=== PATIENT | female | born 1945 | race Caucasian/White ===

== ENCOUNTER 2021-05-31 18:33 | Emergency (ER) | payer MEDICARE, OTHER ==
[2021-05-31] MEDS ORDERED: Lactated Ringers 1,000 ML IV ONE (20:15)
--- NOTE | 2021-06-01 06:53 | CR ---
Chest: Portable view of the chest was obtained. Comparison: Prior chest x-ray of 02/05/12. Heart size and mediastinum are within normal limits for portable technique. Slight density is noted within the left lung base. Lungs otherwise are clear. Bony structures show nothing acute. Impression: 1. Slight density within the left lung base which could represent an area of atelectasis or small area of pneumonia. 2. Nothing acute is otherwise seen. Diagnostic code #3
--- NOTE | 2021-06-05 12:10 | EDM.PDOC ---
ED HPI GENERAL MEDICAL PROBLEM - General Chief Complaint: General Stated Complaint: COVID +/WORSENING SYMPTOMS Time Seen by Provider: 05/31/21 20:00 - History of Present Illness INITIAL COMMENTS - FREE TEXT/NARRATIVE: Patient reports symptom onset 1 week ago Endorses fatigue, cough, anorexia, altered taste and smell States her "bones hurt" Endorses dyspnea due to cough No vomiting or diarrhea Feels like she is getting dehydrated Tested positive for COVID-19 yesterday - Related Data Allergies Allergy/AdvReac Type Severity Reaction Status Date / Time atorvastatin calcium Allergy Cannot Verified 06/01/21 13:42 [From Lipitor] Remember Home Meds: Home Meds Acetaminophen/HYDROcodone [[place] 325-5 MG] 1 - 2 tab PO Q6H PRN #20 tab 04/29/14 [Rx] Antibiotic? 04/29/14 [History] Hydrochlorothiazide 12.5 mg PO DAILY 04/29/14 [History] Lisinopril. 04/29/14 [History] Ondansetron [Zofran ODT] 4 mg PO Q6H PRN #10 tab.dis 04/29/14 [Rx] Rosuvastatin Calcium [Crestor] 04/29/14 [History] Saxagliptin HCl/Metformin HCl [Kombiglyze XR 2.5-1,000 MG] 04/29/14 [History] Sertraline HCl 100 mg PO DAILY 04/29/14 [History] Tamsulosin HCl [Flomax] 0.4 mg PO QPM #10 cap.er.24h 04/29/14 [Rx] lisinopriL [Lisinopril] 5 mg PO DAILY 05/31/21 [History] dexAMETHasone [Dexamethasone] 6 mg PO DAILY #14 tablet 06/01/21 [Rx] Past Medical History Cardiovascular History: Reports: High Cholesterol, Hypertension - Infectious Disease History Infectious Disease History: Reports: Novel Coronavirus Social & Family History - Tobacco Use Tobacco Use Status *Q: Unknown Ever Used Tobacco ED ROS GENERAL - Review of Systems Review Of Systems: See Below Free Text/Narrative/Comment: Constitutional - fatigue, anorexia, anosmia, dysgeusia Eyes - no eye pain; no visual disturbance ENT - no rhinorrhea; no congestion; no epistaxis Cardiovascular - no chest pain Respiratory - shortness of breath; cough Gastrointestinal - no abdominal pain; no nausea; no vomiting; no diarrhea Genitourinary - no dysuria Musculoskeletal - myalgia; no extremity injury Neurological - no speech disturbance; no weakness ED EXAM, GENERAL - Physical Exam Exam: See Below Free Text/Narrative:: Constitutional - awake; alert; mild, general distress Head - no facial swelling or weakness Eyes - extra ocular motion intact; conjunctiva normal; pupils equal and reactive to light ENT - no nasal deformity; no epistaxis; normal phonation; mucus membranes moist; Neck - no swelling Respiratory - normal respiratory effort; no crackles or wheezing; no stridor Cardiovascular - regular rhythm; normal rate; S1; S2; grade 1/6 systolic murmur GI/Abdomen - normal bowel sounds; soft; no tenderness; no rebound; no guarding; no mass Musculoskeletal - grossly normal strength and motion; no swelling or deformity Skin - warm; dry Neurologic - normal speech; no weakness Psychiatric - normal mood and affect; memory and attention normal Course - Vital Signs Text/Narrative:: . Considered etiologies included: viral syndrome, COVID-19, dyspnea, pneumonia Symptoms and examination were discussed Investigations were initiated Empiric treatment was provided with IV fluid infusion Consideration for monoclonal antibody therapy was discussed Patient subsequently refused, stated she had to get home as her is also sick There was no hypoxia during ED course Patient was felt to be stable for outpatient follow-up Return precautions were provided Last Recorded V/S: Last Vital Signs Temp 36.9 C 05/31/21 21:59 Pulse 88 05/31/21 21:59 Resp 16 05/31/21 21:59 BP 124/75 05/31/21 21:59 Pulse Ox 90 L 05/31/21 21:59 - Orders/Labs/Meds Labs: Laboratory Tests 05/31/21 05/31/21 Range/Units 20:25 20:25 WBC 3.27 L (3.98-10.04) K/mm3 RBC 4.19 (3.98-5.22) M/mm3 Hgb 11.9 D (11.2-15.7) gm/dl Hct 37.1 (34.1-44.9) % MCV 88.5 (79.4-94.8) fl MCH 28.4 (25.6-32.2) pg MCHC 32.1 L (32.2-35.5) g/dl RDW Std Deviation 42.9 (36.4-46.3) fL Plt Count 141 L D (182-369) K/mm3 MPV 11.0 (9.4-12.3) fl Neut % (Auto) 71.6 H (34.0-71.1) % Lymph % (Auto) 18.0 L (19.3-51.7) % [place] % (Auto) 10.1 (4.7-12.5) % Eos % (Auto) 0.3 L (0.7-5.8) Baso % (Auto) 0.0 L (0.1-1.2) % Neut # (Auto) 2.34 (1.56-6.13) K/mm3 Lymph # (Auto) 0.59 L (1.18-3.74) K/mm3 [place] # (Auto) 0.33 (0.24-0.36) K/mm3 Eos # (Auto) 0.01 L (0.04-0.36) K/mm3 Baso # (Auto) 0.00 L (0.01-0.08) K/mm3 Sodium 133 L (136-145) mEq/L Potassium 4.3 (3.5-5.1) mEq/L Chloride 97 L (98-107) mEq/L Carbon Dioxide 27 (21-32) mEq/L Anion Gap 13.3 (5-15) BUN 14 (7-18) mg/dL Creatinine 0.9 (0.55-1.02) mg/dL Est Cr Clr Drug Dosing TNP Estimated GFR (MDRD) > 60 (>60) mL/min BUN/Creatinine Ratio 15.6 (14-18) Glucose 240 H (70-99) mg/dL Calcium 8.3 L (8.5-10.1) mg/dL Total Bilirubin 0.3 (0.2-1.0) mg/dL AST 20 (15-37) U/L ALT 17 (14-59) U/L Alkaline Phosphatase 74 (46-116) U/L Total Protein 7.0 (6.4-8.2) g/dl Albumin 3.2 L (3.4-5.0) g/dl Globulin 3.8 gm/dL Albumin/Globulin Ratio 0.8 L (1-2) Meds: Medications Discontinued Medications Generic Name Dose Route Start Last Admin Trade Name Freq PRN Reason Stop Dose Admin Lactated Ringer's 1,000 mls @ 999 mls/hr 05/31/21 20:15 05/31/21 20:28 Ringers, Lactated IV 05/31/21 21:15 999 mls/hr .BOLUS ONE Administration - Radiology Interpretation Free Text/Narrative:: XR chest, AP portable, interpreted by curriculum writer: [email or web address] Departure - Departure Time of Disposition: 22:00 Disposition: Home, Self-Care 01 Clinical Impression: COVID-19 virus infection - Discharge Information Referrals: Vonda Choudhary MD [Primary Care Provider] - Forms: ED Department Discharge Additional Instructions: (written instructions provided due to EHR malfunction) Sepsis Event Note (ED) - Evaluation Sepsis Screening Result: No Definite Risk
== END 2021-05-31 21:59 | disposition home or self-care (01) ==
LOC: JD.ED 18:33
DX: U07.1 COVID-19 (principal); E78.00 Pure hypercholesterolemia, unspecified; I10 Essential (primary) hypertension; Z86.16 Personal history of COVID-19; Z88.8 Allergy status to other drugs, medicaments and biological substances
CPT/HCPCS: 36415; 71045; 80053; 85025; 99283; J7120

== ENCOUNTER 2021-06-01 13:18 | Emergency (ER) | payer MEDICARE, OTHER ==
[2021-06-01] MEDS ORDERED: Dexamethasone 4 MG Tab PO ONE (14:48)
--- NOTE | 2021-06-01 15:49 | CR ---
Chest: Portable supine view of the chest was obtained. Comparison: Prior chest x-ray of 05/31/21. Possible increased density is seen located peripherally within the right upper lung which is an interval change from prior exam. Slight increased density within the left base is seen which appears stable. Minimal increased density is noted within the left upper lung which is an interval change from prior study. Heart size and mediastinum are within normal limits for supine technique. Slight scoliosis is noted within the spine. Impression: 1. Slight worsening of the chest as described above. Findings most likely represent mild worsening Covid pneumonia. Diagnostic code #3
--- NOTE | 2021-06-01 16:08 | EDM.PDOC ---
ED HPI GENERAL MEDICAL PROBLEM - General Chief Complaint: Respiratory Problem Stated Complaint: COVID +/LOW O2 Time Seen by Provider: 06/01/21 14:22 Source of Information: Reports: Patient History Limitations: Reports: No Limitations - History of Present Illness INITIAL COMMENTS - FREE TEXT/NARRATIVE: 75-year-old female presents the emergency department today with complaints of increasing shortness of breath due to Covid. The patient was diagnosed with Covid 2 days ago, 05/30/2021. She was seen in the emergency department last evening and evaluated and discharged home. She states she has had pulse oximetry monitored from [facility] and her O2 saturations have been dropping into the 80s on room air. They did phone her and tell her they recommend she be reevaluated in the emergency department today. Patient presents and is requesting home O2 and steroid treatment. She denies history of smoking. She states she is a diabetic and she is insulin-dependent. Her primary care provider is Dr. Choudhary. - Related Data Allergies Allergy/AdvReac Type Severity Reaction Status Date / Time atorvastatin calcium Allergy Cannot Verified 06/01/21 13:42 [From Lipitor] Remember Home Meds: Home Meds Acetaminophen/HYDROcodone [[place] 325-5 MG] 1 - 2 tab PO Q6H PRN #20 tab 04/29/14 [Rx] Antibiotic? 04/29/14 [History] Hydrochlorothiazide 12.5 mg PO DAILY 04/29/14 [History] Lisinopril. 04/29/14 [History] Ondansetron [Zofran ODT] 4 mg PO Q6H PRN #10 tab.dis 04/29/14 [Rx] Rosuvastatin Calcium [Crestor] 04/29/14 [History] Saxagliptin HCl/Metformin HCl [Kombiglyze XR 2.5-1,000 MG] 04/29/14 [History] Sertraline HCl 100 mg PO DAILY 04/29/14 [History] Tamsulosin HCl [Flomax] 0.4 mg PO QPM #10 cap.er.24h 04/29/14 [Rx] lisinopriL [Lisinopril] 5 mg PO DAILY 05/31/21 [History] dexAMETHasone [Dexamethasone] 6 mg PO DAILY #14 tablet 06/01/21 [Rx] Past Medical History Cardiovascular History: Reports: High Cholesterol, Hypertension - Infectious Disease History Infectious Disease History: Reports: Novel Coronavirus Social & Family History - Tobacco Use Tobacco Use Status *Q: Never Tobacco User ED ROS GENERAL - Review of Systems Review Of Systems: Comprehensive ROS is negative, except as noted in HPI. ED EXAM, GENERAL - Physical Exam Exam: See Below Exam Limited By: No Limitations General Appearance: Alert, WD/WN, Mild Distress Ears: Normal External Exam, Hearing Grossly Normal Nose: Normal Inspection Throat/Mouth: Normal Inspection, Normal Lips, Normal Voice, No Airway Compromise Head: Atraumatic Neck: Normal Inspection, Supple Respiratory/Chest: No Accessory Muscle Use, Chest Non-Tender, Decreased Breath Sounds, Crackles (Posteriorly). No: Lungs Clear, Normal Breath Sounds Cardiovascular: Normal Peripheral Pulses, Regular Rate, Rhythm, No Edema, No Murmur Peripheral Pulses: 2+: Radial (L), Radial (R) GI/Abdominal: Normal Bowel Sounds, Soft, Non-Tender, No Distention (Female) Exam: Deferred Rectal (Female) Exam: Deferred Back Exam: Normal Inspection Extremities: Normal Inspection Neurological: Alert, Oriented, Normal Cognition Psychiatric: Normal Affect, Normal Mood Skin Exam: Warm, Dry, Intact, Normal Color, No Rash Lymphatic: No Adenopathy Course - Vital Signs Text/Narrative:: As stated above, patient presents with increasing shortness of breath and low O2 saturations due to Covid. Upon exam, the patient is 83% on room air. O2 was applied at 2 L per nasal cannula and her O2 saturations increased to 97%. Did discuss with the patient the fact that she does meet criteria for hospitalization however there is not a hospital bed available in [place] or in the surrounding areas at this time. Patient does not want to be hospitalized and is requesting that she be placed on home O2 and steroids. I have ordered lab studies to include a CBC, CMP, magnesium, C-reactive protein, a D-dimer and a portable chest x-ray. Also received 6 mg of dexamethasone p.o. Last Recorded V/S: Last Vital Signs Temp 99.2 F 06/01/21 13:34 Pulse 80 06/01/21 13:34 Resp 20 06/01/21 13:34 BP 115/58 L 06/01/21 13:34 Pulse Ox 91 L 06/01/21 13:34 - Orders/Labs/Meds Orders: Active Orders 24 hr Category Date Time Status RT Evaluate for Home Oxygen [RC] Click to Edit Care 06/01/21 16:07 Active UA RFX CHAMP AND CULT IF INDIC [URIN] Stat Lab 06/01/21 14:48 Ordered Labs: Laboratory Tests 06/01/21 06/01/21 06/01/21 Range/Units 15:03 15:03 15:03 WBC 3.04 L (3.98-10.04) K/mm3 RBC 4.05 (3.98-5.22) M/mm3 Hgb 11.6 (11.2-15.7) gm/dl Hct 36.0 (34.1-44.9) % MCV 88.9 (79.4-94.8) fl MCH 28.6 (25.6-32.2) pg MCHC 32.2 (32.2-35.5) g/dl RDW Std Deviation 43.0 (36.4-46.3) fL Plt Count 145 L (182-369) K/mm3 MPV 10.7 (9.4-12.3) fl Neut % (Auto) 73.4 H (34.0-71.1) % Lymph % (Auto) 14.5 L (19.3-51.7) % [place] % (Auto) 11.5 (4.7-12.5) % Eos % (Auto) 0 L (0.7-5.8) Baso % (Auto) 0.3 (0.1-1.2) % Neut # (Auto) 2.23 (1.56-6.13) K/mm3 Lymph # (Auto) 0.44 L (1.18-3.74) K/mm3 [place] # (Auto) 0.35 (0.24-0.36) K/mm3 Eos # (Auto) 0.00 L (0.04-0.36) K/mm3 Baso # (Auto) 0.01 (0.01-0.08) K/mm3 D-Dimer, Quantitative 0.95 H (0.19-0.50) mg/L Sodium 132 L (136-145) mEq/L Potassium 3.9 (3.5-5.1) mEq/L Chloride 95 L (98-107) mEq/L Carbon Dioxide 30 (21-32) mEq/L Anion Gap 10.9 (5-15) BUN 12 (7-18) mg/dL Creatinine 0.9 (0.55-1.02) mg/dL Est Cr Clr Drug Dosing 42.01 mL/min Estimated GFR (MDRD) > 60 (>60) mL/min BUN/Creatinine Ratio 13.3 L (14-18) Glucose 291 H (70-99) mg/dL Calcium 8.3 L (8.5-10.1) mg/dL Magnesium 1.9 (1.8-2.4) mg/dL Total Bilirubin 0.4 (0.2-1.0) mg/dL AST 19 (15-37) U/L ALT 17 (14-59) U/L Alkaline Phosphatase 68 (46-116) U/L C-Reactive Protein 5.7 H* (<1.0) mg/dL Total Protein 6.8 (6.4-8.2) g/dl Albumin 3.0 L (3.4-5.0) g/dl Globulin 3.8 gm/dL Albumin/Globulin Ratio 0.8 L (1-2) Meds: Medications Discontinued Medications Generic Name Dose Route Start Last Admin Trade Name Freq PRN Reason Stop Dose Admin Dexamethasone 6 mg 06/01/21 14:48 Dexamethasone 4 Mg Tab PO 06/01/21 14:49 ONETIME ONE - Re-Assessments/Exams Free Text/Narrative Re-Assessment/Exam: 06/01/21 16:12 Radiologist impression portable supine view of the chest: 1. Slight worsening of the chest as described above. Findings most likely represent mild worsening Covid pneumonia. Hematology reveals a WBC of 3.04, hemoglobin 11.6, hematocrit 36.0, platelet count 145 D-dimer 0.95 Chemistry reveals a sodium of 132, potassium 3.9, chloride 95, carbon dioxide 30, 9 gap 10.9, BUN 12, creatinine 0.9, glucose 291, magnesium 1.9, C-reactive protein 5.7 Although D-dimer is slightly elevated I do not believe that this warrants a CTA at this time as it is only a modest elevation. Patient is requesting to be discharged home with home O2 and steroids. I have placed an order for respiratory therapy to qualify her for home O2 and I will send a prescription to her pharmacy for dexamethasone 6 mg daily for the next 9 days. Patient will be given strong return precautions. Departure - Departure Time of Disposition: 16:13 Disposition: Home, Self-Care 01 Condition: Good Clinical Impression: Pneumonia due to COVID-19 virus - Discharge Information Prescriptions: dexAMETHasone [Dexamethasone] 6 mg PO DAILY #14 tablet Referrals: Vonda Choudhary MD [Primary Care Provider] - Forms: ED Department Discharge Additional Instructions: You were seen in the emergency department today with increasing shortness of breath and low oxygen levels due to Covid. Oxygen levels while in the emergency department were 87% on room air. O2 was applied and it decreased her oxygen saturation to 97%. Lab studies were completed which were essentially unremarkable. Chest x-ray does show slightly worsening pneumonia however this is viral in origin and cannot be treated with antibiotics. You were given oral steroids while in the emergency department. You will need to continue these for the next 9 days. A prescription has been [facility] in [place] for you to begin taking this tomorrow. Should your condition worsen or change, do not hesitate returning to emergency department. Sepsis Event Note (ED) - Evaluation Sepsis Screening Result: No Definite Risk - Focused Exam Vital Signs: Vital Signs Temp Pulse Resp BP Pulse Ox 06/01/21 13:34 99.2 F 80 20 115/58 L 91 L - My Orders Last 24 Hours: My Active Orders 06/01/21 14:48 UA RFX CHAMP AND CULT IF INDIC [URIN] Stat 06/01/21 16:07 RT Evaluate for Home Oxygen [RC] Click to Edit - Assessment/Plan Last 24 Hours: My Active Orders 06/01/21 14:48 UA RFX CHAMP AND CULT IF INDIC [URIN] Stat 06/01/21 16:07 RT Evaluate for Home Oxygen [RC] Click to Edit
== END 2021-06-01 17:10 | disposition home or self-care (01) ==
LOC: JD.ED 13:18
DX: U07.1 COVID-19 (principal); J12.82 Pneumonia due to coronavirus disease 2019; E78.00 Pure hypercholesterolemia, unspecified; I10 Essential (primary) hypertension; Z88.8 Allergy status to other drugs, medicaments and biological substances; Z79.899 Other long term (current) drug therapy
CPT/HCPCS: 36415; 71045; 80053; 83735; 85025; 85379; 86140; 99285; J8540

== ENCOUNTER 2025-05-04 13:32 | Emergency (ER) | payer MEDICARE, OTHER ==
[2025-05-04] MEDS: Sodium Chloride 0.9% 10 ML Syringe FLUSH PRN (15:11)
[2025-05-04 15:47] LABS: BASOPHILS ABSOLUTE AUTO 0.0 K/mm3 (0.0-0.2); BASOPHILS PERCENT AUTO 0.1 % (0.0-1.0); EOSINOPHILS ABSOLUTE AUTO 0.0 K/mm3 (0.0-0.4); EOSINOPHILS PERCENT AUTO 0.0 % (0.0-6.0); IMMATURE GRAN ABSOLUTE AUTO 0.03 K/mm3 (0.00-0.05); IMMATURE GRAN PERCENT AUTO 0.4 % (0.0-0.4); LYMPHOCYTES ABSOLUTE AUTO 0.6 K/mm3 (1.0-4.8); LYMPHOCYTES PERCENT AUTO 7.3 % (24.0-44.0); MEAN PLATELET VOLUME 10.7 fl (9.4-12.3); MONOCYTES ABSOLUTE AUTO 0.7 K/mm3 (0.0-0.8); MONOCYTES PERCENT AUTO 9.2 % (0.0-8.0); NEUTROPHILS ABSOLUTE AUTO 6.3 K/mm3 (1.8-7.7); NEUTROPHILS PERCENT AUTO 83.0 % (41.0-71.0); NRBC ABSOLUTE 0.00 (0.00-0.02); NRBC PERCENT 0.0 % (0.0-0.2); PLATELET COUNT,PLT 142 K/mm3 (150-400); RED BLOOD CELL COUNT 4.75 M/mm3 (4.10-5.30); WHITE BLOOD CELL COUNT,WBC 7.54 K/mm3 (3.9-11.3)
[2025-05-04 15:51] LABS: BASE EXCESS VENOUS -3.9 (-4.0-2.0); BICARBONATE,VENOUS 22.2 meq/L (22-26); O2 SATURATION VENOUS 43; PCO2 VENOUS 43.0 mmHg (41-51); PH,VENOUS 7.32 (7.30-7.40); PO2 VENOUS 43.0 mmHG (40-80)
[2025-05-04 16:16] LABS: A/G RATIO 0.8 (1-2); ALANINE AMINOTRANSFERASE,ALT 12.0 U/L (14-59); ASPARTATE AMNIOTRANSFERASE,AST 13.0 U/L (15-37); BILIRUBIN TOTAL 0.5 mg/dL (0.2-1.0); BLOOD UREA NITROGEN,BUN 21.0 mg/dL (7-18); CARBON DIOXIDE,CO2 23.0 mEq/L (21-32); CHLORIDE,CL 96.0 mEq/L (98-107); CREATININE 1.5 mg/dL (0.55-1.02); EST CRCL DRUG DOSING (CG) 24.84 mL/min; ESTIMATED GFR 36.0 mL/min (>60); GLUCOSE RANDOM 245.0 mg/dL (70-99); POTASSIUM,K 4.3 mEq/L (3.5-5.1); PROTEIN TOTAL,TP 7.9 g/dl (6.4-8.2); SODIUM,NA 133.0 mEq/L (136-145)
[2025-05-04 16:38] LABS: LACTIC ACID 2.6 mmol/L (0.4-2.0)
[2025-05-04 16:50] LABS: APPEARANCE,URINE CLEAR (Clear); GLUCOSE,URINE NEGATIVE (Negative); OCCULT BLOOD,URINE 2+ (Negative)
[2025-05-04 17:16] LABS: EPITHELIAL CELLS,URINE 0-5 /hpf (0-5)
[2025-05-04 17:20] LABS: OSMOLALITY,SERUM 295.0 mosm/kg (280-300)
== END 2025-05-04 18:00 ==
LOC: JD.ED 13:32
DX: N20.1 Calculus of ureter (principal); N12 Tubulo-interstitial nephritis, not specified as acute or chronic; R00.0 Tachycardia, unspecified; R50.9 Fever, unspecified; R73.9 Hyperglycemia, unspecified; I10 Essential (primary) hypertension; Z88.8 Allergy status to other drugs, medicaments and biological substances; Z79.82 Long term (current) use of aspirin; Z79.899 Other long term (current) drug therapy; Z86.16 Personal history of COVID-19
CPT/HCPCS: 36415; 71045; 80053; 81001; 82803; 83605; 83690; 83735; 83930; 85025; 87040; 87086; 87428; 96361; 96374; 99285; J0696; J7030; 87088; 87186